=== PATIENT | female | born 1935 | race Caucasian/White ===

== ENCOUNTER → 2016-07-05 | Outpatient (CLI) | payer MEDICARE, BC ==
--- NOTE | 2016-07-05 11:59 | MM ---
Reason for exam: history of breast cancer, conservation therapy. Last mammogram was performed 6 months ago. History: Patient is postmenopausal, has history of bilateral breast cancer at age 78, and has history of high-risk lesion on a previous biopsy at age 78. Benign MG stereo VAD BX RT of the right breast, July 13, 2015. Malignant right breast needle localzation of both breasts, September 18, 2013. High risk right mammotome panel of the right breast, August 19, 2013. Lumpectomy, 2013. Radiation therapy, 2013. 2 benign excisional biopsies of the left breast. Taking antineoplastic for 1 year 2 months. Physical Findings: Nurse did not find any significant physical abnormalities on exam. MG 3D Diag Mammo W/Cad AINSLEY Bilateral CC and MLO view(s) were taken. Prior study comparison: January 04, 2016, right breast MG 3d diag mammo w/cad RT. July 04, 2015, bilateral MG 3d diag mammo w/cad AINSLEY. July 02, 2014, bilateral MG diagnostic mammo w CAD AINSLEY. July 22, 2013, bilateral digital screening mammo w/CAD. January 08, 2012, bilateral digital screening mammo w/CAD. There are scattered fibroglandular densities. Previous mammotome biopsy in the right breast. Post surgical clips in the right breast and post surgical changes. There are new course group of calcifications in the upper outer quadrant right breast near the stereo biopsy clip, suspected early dystrophic calcifications. Otherwise, no significant change. These results were verbally communicated with the patient and result sheet given to the patient on 07/05/16. ASSESSMENT: Probably benign, BI-RAD 3 RECOMMENDATION: Follow-up diagnostic mammogram of the right breast in 6 months.
== END | disposition home or self-care (01) ==
LOC: RADMAMWWP 10:46
PROVIDERS: ATTEND Radiology Diagnostic Radiology
DX: C50.911 Malignant neoplasm of unspecified site of right female breast (principal)
CPT/HCPCS: G0204; G0279

== ENCOUNTER → 2016-08-06 | Outpatient (CLI) | payer MEDICARE, BC ==
[2016-08-06 08:44] LABS: Basophils # (A) 0.1 k/uL (0-0.2); Basophils % (A) 1 %; CH 30.9; Eosinophils # (A) 0.1 k/uL (0-0.7); Eosinophils % (A) 2 %; HCT 41.8 % (34.0-46.0); HDW 2.27; HGB 13.8 gm/dL (11.4-16.0); Luc # (Auto) 0.13; Luc % (Auto) 2; Lymphocytes # (A) 1.9 k/uL (1.0-4.8); Lymphocytes % (A) 32 %; MCH 30.9 pg (25.0-35.0); MCHC 32.9 g/dL (31.0-37.0); MCV 93.9 fL (80.0-100.0); Mean Platelet Volume 7.5; Monocytes # (A) 0.4 k/uL (0-1.0); Monocytes % (A) 6 %; Neutrophils # (A) 3.3 k/uL (1.3-7.7); Neutrophils % (A) 56 %; RBC 4.46 m/uL (3.80-5.40); RDW 12.5 % (11.5-15.5); WBC 5.9 k/uL (3.8-10.6); WBC (Perox) 6.01
[2016-08-06 10:07] LABS: ALT 33 U/L (9-52); AST 22 U/L (14-36); Alkaline Phosphatase 80 U/L (38-126); Anion Gap 11 mmol/L; Blood Urea Nitrogen 9 mg/dL (7-17); Calcium 9.5 mg/dL (8.4-10.2); Carbon Dioxide 27 mmol/L (22-30); Chloride 103 mmol/L (98-107); Cholesterol 171 mg/dL (<200); Glucose 136 mg/dL (74-99); HDL Cholesterol 58 mg/dL (40-60); Non-African American GFR(MDRD) >60 (>60 ml/min/1.73 sqM); Potassium 4.4 mmol/L (3.5-5.1); Sodium 141 mmol/L (137-145); Total Bilirubin 0.6 mg/dL (0.2-1.3); Total Protein 7.4 g/dL (6.3-8.2); Triglycerides 223 mg/dL (<150)
== END | disposition home or self-care (01) ==
LOC: LABWHC1 08:13
PROVIDERS: ATTEND Internal Medicine
DX: E11.9 Type 2 diabetes mellitus without complications (principal); E78.5 Hyperlipidemia, unspecified; E03.9 Hypothyroidism, unspecified
CPT/HCPCS: 36415; 80053; 80061; 84439; 84443; 84481; 85025

== ENCOUNTER → 2017-01-02 | Outpatient (CLI) | payer MEDICARE, BC ==
--- NOTE | 2017-01-02 14:28 | MM ---
Reason for exam: follow-up at short interval from prior study. Last mammogram was performed 6 months ago. History: Patient is postmenopausal, has history of bilateral breast cancer at age 78, and has history of high-risk lesion on a previous biopsy at age 78. Benign MG stereo VAD BX RT of the right breast, July 13, 2015. Malignant right breast needle localzation of both breasts, September 18, 2013. High risk right mammotome panel of the right breast, August 19, 2013. Lumpectomy, 2013. Radiation therapy, 2013. 2 benign excisional biopsies of the left breast. Taking antineoplastic beginning at age 79. Physical Findings: Nurse did not find any significant physical abnormalities on exam. MG 3D Diag Mammo W/Cad RT CC and MLO view(s) were taken of the right breast. Prior study comparison: July 05, 2016, bilateral MG 3d diag mammo w/cad AINSLEY. July 22, 2013, bilateral digital screening mammo w/CAD. No significant new findings when compared with previous films. These results were verbally communicated with the patient and result sheet given to the patient on 01/02/17. ASSESSMENT: Benign, BI-RAD 2 RECOMMENDATION: Routine screening mammogram of both breasts in 1 year.
== END | disposition home or self-care (01) ==
LOC: RADMAMWWP 12:32
PROVIDERS: ATTEND Radiology Diagnostic Radiology
DX: C50.911 Malignant neoplasm of unspecified site of right female breast (principal); Z79.811 Long term (current) use of aromatase inhibitors
CPT/HCPCS: G0206; G0279

== ENCOUNTER → 2017-07-15 | Outpatient (CLI) | payer MEDICARE, BC ==
--- NOTE | 2017-07-15 11:54 | MM ---
Reason for exam: additional evaluation requested from prior study. Last mammogram was performed 6 months ago. History: Patient is postmenopausal, has history of bilateral breast cancer at age 78, and has history of high-risk lesion on a previous biopsy at age 78. Benign MG stereo VAD BX RT of the right breast, July 13, 2015. Malignant right breast needle localzation of both breasts, September 18, 2013. High risk right mammotome panel of the right breast, August 19, 2013. Lumpectomy, 2013. Radiation therapy, 2013. 2 benign excisional biopsies of the left breast. Taking antineoplastic beginning at age 79. Physical Findings: Nurse did not find any significant physical abnormalities on exam. MG 3D Diag Mammo W/Cad AINSLEY Bilateral CC and MLO view(s) were taken. Prior study comparison: January 02, 2017, right breast MG 3d diag mammo w/cad RT. July 05, 2016, bilateral MG 3d diag mammo w/cad AINSLEY. There are scattered fibroglandular densities. Stable benign calcifications. Previous mammotome biopsy in the right breast. Stable lumpectomy changes in the right breast. No significant new findings when compared with previous films. These results were verbally communicated with the patient and result sheet given to the patient on 07/15/17. ASSESSMENT: Benign, BI-RAD 2 RECOMMENDATION: Follow-up diagnostic mammogram of both breasts in 1 year.
== END | disposition home or self-care (01) ==
LOC: RADMAMWWP 10:40
PROVIDERS: ATTEND Internal Medicine Hematology & Oncology
DX: Z08 Encounter for follow-up examination after completed treatment for malignant neoplasm (principal); Z85.3 Personal history of malignant neoplasm of breast
CPT/HCPCS: 77066; G0279

== ENCOUNTER → 2018-02-10 | Outpatient (CLI) | payer MEDICARE, BC ==
--- NOTE | 2018-02-10 13:56 | BD ---
EXAMINATION TYPE: Axial Bone Density DATE OF EXAM: 02/10/2018 COMPARISON: Prior DEXA bone scan February 09, 2016 CLINICAL HISTORY: History of breast cancer with osteopenia. Height: 5 FT 1 1/2 IN Weight: 205 FRAX RISK QUESTIONS: RISK FACTORS HISTORY OF: Active: IN WHEEL CHAIR Postmenopausal woman: AGE 56 Poor Health: FAIR MEDICATIONS: Thyroid Medications: YES Which medication: LEVOTHYROXINE How Long: MANY YEARS Additional Medications: JANUMET, LEVOTHYROXINE,PRAVASTIN, PANTOPRAZOLE, ANASTROZOLE Additional History: EXAM MEASUREMENTS: Bone mineral densitometry was performed using the [employer] [facility]. Bone mineral density as measured about the Lumbar spine is: ----- L1-L4(G/cm2): 1.178 T Score Values are as follows: ----- L2: -0.5 ----- L3: 0.1 ----- L4: 0.1 ----- L1-L4: 0.0 Bone mineral density has: DECREASED -1.5% SINCE STUDY OF 2015 Bone mineral density about the R hip (g/cm2): 0.694 Bone mineral density about the L hip (g/cm2): 0.858 T Score values are as follows: -----R Neck: -2.5 -----L Neck: -1.3 -----R Total: -1.4 -----L Total: -0.5 Bone mineral density has: DECREASED -10% SINCE STUDY OF 2015 IMPRESSION: Osteopenia (T Score between -2.5 and -1 persists in the bilateral. Bone density decreased or diminish ed from prior. There remains slightly increased risk of fracture and the patient may be considered for treatment. Re-Screen 2-5 years. NOTE: T-SCORE=SD OF THE YOUNG ADULT MEAN.
== END | disposition home or self-care (01) ==
LOC: RADBDWWP 12:00
PROVIDERS: ATTEND Internal Medicine Hematology & Oncology
DX: M85.80 Other specified disorders of bone density and structure, unspecified site (principal); C50.919 Malignant neoplasm of unspecified site of unspecified female breast; Z79.890 Hormone replacement therapy
CPT/HCPCS: 77080

== ENCOUNTER → 2018-07-30 | Outpatient (CLI) | payer MEDICARE, BC ==
--- NOTE | 2018-07-30 15:11 | MM ---
Reason for exam: additional evaluation requested from prior study. Last mammogram was performed 1 year ago. History: Patient is postmenopausal, has history of bilateral breast cancer at age 78, and has history of high-risk lesion on a previous biopsy at age 78. Benign MG stereo VAD BX RT of the right breast, July 13, 2015. Malignant right breast needle localzation of both breasts, September 18, 2013. High risk right mammotome panel of the right breast, August 19, 2013. Lumpectomy, 2013. Radiation therapy, 2013. 2 benign excisional biopsies of the left breast. Taking antineoplastic beginning at age 79. Physical Findings: Nurse did not find any significant physical abnormalities on exam. MG 3D Diag Mammo W/Cad AINSLEY Bilateral CC and MLO view(s) were taken. Prior study comparison: July 15, 2017, bilateral MG 3d diag mammo w/cad AINSLEY. January 02, 2017, right breast MG 3d diag mammo w/cad RT. The breast tissue is heterogeneously dense. This may lower the sensitivity of mammography. Stable benign calcifications right breast. Stable post operative changes right breast. No significant new findings when compared with previous films. These results were verbally communicated with the patient and result sheet given to the patient on 07/30/18. ASSESSMENT: Benign, BI-RAD 2 RECOMMENDATION: Follow-up diagnostic mammogram of both breasts in 1 year.
== END | disposition home or self-care (01) ==
LOC: RADMAMWWP 13:38
PROVIDERS: ATTEND Radiology Diagnostic Radiology
DX: C50.911 Malignant neoplasm of unspecified site of right female breast (principal)
CPT/HCPCS: 77066; G0279; 77062

== ENCOUNTER → 2018-09-19 | Outpatient (CLI) | payer MEDICARE, BC ==
[2018-09-19 10:02] LABS: Basophils % (A) 1 %; Eosinophils # (A) 0.1 k/uL (0-0.7); Eosinophils % (A) 1 %; HCT 42.8 % (34.0-46.0); HGB 13.6 gm/dL (11.4-16.0); Lymphocytes # (A) 1.3 k/uL (1.0-4.8); Lymphocytes % (A) 30 %; MCH 29.6 pg (25.0-35.0); MCHC 31.7 g/dL (31.0-37.0); MCV 93.5 fL (80.0-100.0); Monocytes # (A) 0.3 k/uL (0-1.0); Monocytes % (A) 6 %; Neutrophils # (A) 2.5 k/uL (1.3-7.7); Neutrophils % (A) 59 %; Platelet Count 244 k/uL (150-450); RBC 4.58 m/uL (3.80-5.40); RDW 13.1 % (11.5-15.5); WBC 4.3 k/uL (3.8-10.6)
[2018-09-19 17:39] LABS: Vitamin D 25 Hydroxy 42.3 ng/mL (30.0-100.0)
[2018-09-19 17:45] LABS: Albumin 4.3 g/dL (3.80-4.90); Albumin/Globulin Ratio 1.95 (1.60-3.17); Calcium 9.3 mg/dL (8.7-10.3); Globulin 2.2 g/dL (1.6-3.3); LDL Cholesterol,Calculated 77.4 mg/dL (0.0-131.0); Total Bilirubin 0.5 mg/dL (0.3-1.2); Total Protein 6.5 g/dL (6.2-8.2); VLDL Calculation 35.6 mg/dL (5.00-40.00)
[2018-09-19 17:54] LABS: T4, Free (Free Thyroxine) 1.2 ng/dL (0.80-1.80)
[2018-09-19 19:09] LABS: Hemoglobin A1C 6.1 % (4.0-6.0)
== END | disposition home or self-care (01) ==
LOC: LABWHC1 08:53
PROVIDERS: ATTEND Internal Medicine
DX: E03.9 Hypothyroidism, unspecified (principal); E11.9 Type 2 diabetes mellitus without complications; E78.5 Hyperlipidemia, unspecified; R41.3 Other amnesia; E55.9 Vitamin D deficiency, unspecified
CPT/HCPCS: 36415; 80053; 80061; 82306; 82607; 83036; 84439; 84443; 84481; 85025

== ENCOUNTER 2024-01-15 09:55 | Emergency (ER) | payer BC, MEDICARE ==
[2024-01-15 10:13] VITALS: TEMP 97.5
--- NOTE | 2024-01-15 10:15 | ED ---
Nausea/Vomiting/Diarrhea HPI - General Chief complaint: Nausea/Vomiting/Diarrhea Stated complaint: vomiting Time Seen by Provider: 01/15/24 10:12 Source: patient, EMS, RN notes reviewed Mode of arrival: EMS - History of Present Illness Initial comments: This is an 88-year-old female with a past history of dementia who is A&O x 1 at baseline presents the emergency department via EMS from [facility] for complaint of nausea and vomiting. It is reported by nursing staff at the [facility] that patient had a episode of "unresponsiveness" and she experienced vomiting. Patient was given Zofran and route. Currently, patient is denying abdominal pain, chest pain, shortness of breath. She states that she still feels nauseated. Patient's [id number] at bedside denies previous surgical abdominal history, history of MO or CVA. [id number] states that patient had an extensive workup completed approximately 1 month ago at [facility] for an episode of syncope and there were no acute findings. - Related Data Previous Rx's Medication Instructions Recorded Cephalexin [Keflex] 500 mg PO Q6HR #40 cap 01/15/24 Allergies Allergy/AdvReac Type Severity Reaction Status Date / Time Penicillins Allergy Unknown Verified 01/15/24 10:13 Review of Systems ROS Statement: Those systems with pertinent positive or pertinent negative responses have been documented in the HPI. ROS Other: All systems not noted in ROS Statement are negative. Past Medical History Past Medical History: Dementia, Diabetes Mellitus, Thyroid Disorder Past Surgical History: Unable to Obtain General Exam Limitations: no limitations, language barrier (baseline mentation A&OX1 due to dementia) Head exam: Present: atraumatic, normocephalic, normal inspection Eye exam: Present: normal appearance, PERRL, EOMI. Absent: scleral icterus, conjunctival injection, periorbital swelling ENT exam: Present: normal exam, mucous membranes moist Neck exam: Present: normal inspection. Absent: tenderness, meningismus, lymphadenopathy Respiratory exam: Present: normal lung sounds bilaterally. Absent: respiratory distress, wheezes, rales, rhonchi, stridor Cardiovascular Exam: Present: regular rate, normal rhythm, normal heart sounds. Absent: systolic murmur, diastolic murmur, rubs, gallop, clicks GI/Abdominal exam: Present: soft, normal bowel sounds. Absent: distended, tenderness, guarding, rebound, rigid Extremities exam: Present: normal inspection, full ROM, normal capillary refill. Absent: tenderness, pedal edema, joint swelling, calf tenderness Back exam: Present: normal inspection Neurological exam: Present: alert, oriented X3, CN II-XII intact Psychiatric exam: Present: normal affect, normal mood Skin exam: Present: warm, dry, intact, normal color. Absent: rash Course Vital Signs 01/15/24 01/15/24 10:10 12:54 Temperature 97.5 F L Pulse Rate 87 80 Respiratory 16 14 Rate Blood Pressure 115/67 123/67 O2 Sat by Pulse 99 98 Oximetry Medical Decision Making - Medical Decision Making Was pt. sent in by a medical professional or institution (, PA, VIDEO ENGINEER, urgent care, hospital, or custodial...) When possible be specific @ -No Did you speak to anyone other than the patient for history (EMS, parent, family, police, friend...)? What history was obtained from this source @ -To the patient's daughter in law at bedside states the patient has not had any surgeries on her abdomen in the past. Additionally, she had a full cardiac workup completed roughly a month ago with no acute findings. Did you review nursing and triage notes (agree or disagree)? Why? @ -I reviewed and agree with nursing and triage notes Were old charts reviewed (outside hosp., previous admission, EMS record, old EKG, old radiological studies, urgent care reports/EKG's, custodial records)? Report findings @ -No old charts were reviewed Differential Diagnosis (chest pain, altered mental status, abdominal pain women, abdominal pain men, vaginal bleeding, weakness, fever, dyspnea, syncope, headache, dizziness, GI bleed, back pain, seizure, CVA, palpatations, mental health, musculoskeletal)? @ -Differential Altered Mental Status: Hypoglycemia, DKA, hypercapnia, ETOH, overdose, CO poisoning, trauma, myxedema coma, HTN encephalopathy, infection, encephalitis, psychosis, intercranial hemorrhage, hepatic encephalopathy, meningitis, CVA, this is not meant to be an all-inclusive list EKG interpreted by me (3pts min.). @ -completed at 1149: rhythm with first-degree AV block with a UT interval of 210. Ventricular rate 76, QTc 408. No acute signs of ischemia. X-rays interpreted by me (1pt min.). @ -chest X-ray no acute cardiopulmonary process or disease noted. CT interpreted by me (1pt min.). @ -None done U/S interpreted by me (1pt. min.). @ -None done What testing was considered but not performed or refused? (CT, X-rays, U/S, labs)? Why? @ -None What meds were considered but not given or refused? Why? @ -None Did you discuss the management of the patient with other professionals (professionals i.e. , PA, VIDEO ENGINEER, lab, RT, psych nurse, social service worker, travel insurance agent, teacher, assault amphibious vehicle officer, caseworker intake)? Give summary @ -No Was smoking cessation discussed for >3mins.? @ -No Was critical care preformed (if so, how long)? @ -No Were there social determinants of health that impacted care today? How? (Homelessness, low income, unemployed, alcoholism, drug addiction, transportati on, low edu. Level, literacy, decrease access to med. care, prison, rehab)? @ -No Was there de-escalation of care discussed even if they declined (Discuss DNR or withdrawal of care, Hospice)? DNR status @ -No What co-morbidities impacted this encounter? (DM, HTN, Smoking, COPD, CAD, Cancer, CVA, ARF, Chemo, Hep., AIDS, mental health diagnosis, sleep apnea, morbid obesity)? @ -None Was patient admitted / discharged? Hospital course, mention meds given and route, prescriptions, significant lab abnormalities, going to OR and other pertinent info. @ -Discharged. 8-year-old female with nausea and vomiting. On examination patient has no signs of abdominal tenderness, abdomen is soft nonrigid. Patient [id number] at bedside aided in providing history of the patient. 2 event of possibly passing out this morning she will be evaluated with a broad workup including chest x-ray to rule out potential aspiration and urinalysis for signs of confusion and nausea and vomiting. Medically treated with IV fluids with clinical signs of dehydration. UA remarkable for infection including positive nitrates, moderate leukocyte esterase, white blood cells and bacteria. She will be provided with a dose of Rocephin through the IV and sent a prescription for Keflex for the urinary tract infection and urine culture will be sent. All questions answered at bedside and strict return parameters zoran with the patient and the patient's family at bedside who verbalized understanding. Patient is stable for discharge as she has not expressed any symptoms of nausea or vomiting since being the emergency department. Additionally she has had no symptoms of abdominal pain.CBC, CMP within normal limits, troponin not elevated at less than 0.012. Glucose mildly elevated at 157. Negative for COVID, flu, RSV. Undiagnosed new problem with uncertain prognosis? @ -No Drug Therapy requiring intensive monitoring for toxicity (Heparin, Nitro, Insulin, Cardizem)? @ -No Were any procedures done? @ -No Diagnosis/symptom? @ -UTI, nausea and vomiting Acute, or Chronic, or Acute on Chronic? @ -acute Uncomplicated (without systemic symptoms) or Complicated (systemic symptoms)? @ -uncomplicated Side effects of treatment? @ -No Exacerbation, Progression, or Severe Exacerbation? @ -No Poses a threat to life or bodily function? How? (Chest pain, USA, MO, pneumonia, PE, COPD, DKA, ARF, appy, cholecystitis, CVA, Diverticulitis, Homicidal, Suicidal, threat to staff... and all critical care pts) @ -No - Lab Data Result diagrams: 01/15/24 10:31 01/15/24 10:31 Lab Results 01/15/24 01/15/24 01/15/24 Range/Units 10:31 10:31 10:31 WBC 4.9 (3.8-10.6) k/uL RBC 3.75 L (3.80-5.40) m/uL Hgb 11.6 (11.4-16.0) gm/dL Hct 36.0 (34.0-46.0) % MCV 96.2 (80.0-100.0) fL MCH 30.9 (25.0-35.0) pg MCHC 32.1 (31.0-37.0) g/dL RDW 12.0 (11.5-15.5) % Plt Count 247 (150-450) k/uL MPV 8.2 Neutrophils % 65 % Lymphocytes % 27 % Monocytes % 6 % Eosinophils % 1 % Basophils % 0 % Neutrophils # 3.1 (1.3-7.7) k/uL Lymphocytes # 1.3 (1.0-4.8) k/uL Monocytes # 0.3 (0-1.0) k/uL Eosinophils # 0.1 (0-0.7) k/uL Basophils # 0.0 (0-0.2) k/uL Hypochromasia Slight Sodium 137 (137-145) mmol/L Potassium 4.6 (3.5-5.1) mmol/L Chloride 108 H (98-107) mmol/L Carbon Dioxide 24 (22-30) mmol/L Anion Gap 5 mmol/L BUN 14 (7-17) mg/dL Creatinine 0.52 (0.52-1.04) mg/dL Est GFR (CKD-EPI)AfAm >90 (>60 ml/min/1.73 sqM) Est GFR (CKD-EPI)NonAf 86 (>60 ml/min/1.73 sqM) Glucose 157 H (74-99) mg/dL Plasma Lactic Acid Lai (0.7-2.0) mmol/L Calcium 8.5 (8.4-10.2) mg/dL Total Bilirubin 0.7 (0.2-1.3) mg/dL AST 21 (14-36) U/L ALT 9 (4-34) U/L Alkaline Phosphatase 45 (38-126) U/L Troponin I (0.000-0.034) ng/mL Total Protein 5.9 L (6.3-8.2) g/dL Albumin 3.3 L (3.5-5.0) g/dL Amylase 43 (30-110) U/L Lipase 83 (23-300) U/L Urine Color Yellow Urine Appearance Cloudy H (Clear) Urine pH 6.5 (5.0-8.0) Ur Specific [place] 1.021 (1.001-1.035) Urine Protein Trace H (Negative) Urine Glucose (UA) Negative (Negative) Urine Ketones Negative (Negative) Urine Blood Negative (Negative) Urine Nitrite Positive H (Negative) Urine Bilirubin Negative (Negative) Urine Urobilinogen 2.0 (<2.0) mg/dL Ur Leukocyte Esterase Moderate H (Negative) Urine RBC 5 (0-5) /hpf Urine WBC 55 H (0-5) /hpf Ur Squamous Epith Cells 5 H (0-4) /hpf Urine Bacteria Occasional H (None) /hpf Hyaline Casts 1 (0-2) /lpf Urine Mucus Occasional H (None) /hpf Influenza Type A (PCR) (Not Detectd) Influenza Type B (PCR) (Not Detectd) RSV (PCR) (Not Detectd) SARS-CoV-2 (PCR) (Not Detectd) 01/15/24 01/15/24 01/15/24 Range/Units 10:31 10:31 10:31 WBC (3.8-10.6) k/uL RBC (3.80-5.40) m/uL Hgb (11.4-16.0) gm/dL Hct (34.0-46.0) % MCV (80.0-100.0) fL MCH (25.0-35.0) pg MCHC (31.0-37.0) g/dL RDW (11.5-15.5) % Plt Count (150-450) k/uL MPV Neutrophils % % Lymphocytes % % Monocytes % % Eosinophils % % Basophils % % Neutrophils # (1.3-7.7) k/uL Lymphocytes # (1.0-4.8) k/uL Monocytes # (0-1.0) k/uL Eosinophils # (0-0.7) k/uL Basophils # (0-0.2) k/uL Hypochromasia Sodium (137-145) mmol/L Potassium (3.5-5.1) mmol/L Chloride (98-107) mmol/L Carbon Dioxide (22-30) mmol/L Anion Gap mmol/L BUN (7-17) mg/dL Creatinine (0.52-1.04) mg/dL Est GFR (CKD-EPI)AfAm (>60 ml/min/1.73 sqM) Est GFR (CKD-EPI)NonAf (>60 ml/min/1.73 sqM) Glucose (74-99) mg/dL Plasma Lactic Acid Lai 1.5 (0.7-2.0) mmol/L Calcium (8.4-10.2) mg/dL Total Bilirubin (0.2-1.3) mg/dL AST (14-36) U/L ALT (4-34) U/L Alkaline Phosphatase (38-126) U/L Troponin I <0.012 (0.000-0.034) ng/mL Total Protein (6.3-8.2) g/dL Albumin (3.5-5.0) g/dL Amylase (30-110) U/L Lipase (23-300) U/L Urine Color Urine Appearance (Clear) Urine pH (5.0-8.0) Ur Specific [place] (1.001-1.035) Urine Protein (Negative) Urine Glucose (UA) (Negative) Urine Ketones (Negative) Urine Blood (Negative) Urine Nitrite (Negative) Urine Bilirubin (Negative) Urine Urobilinogen (<2.0) mg/dL Ur Leukocyte Esterase (Negative) Urine RBC (0-5) /hpf Urine WBC (0-5) /hpf Ur Squamous Epith Cells (0-4) /hpf Urine Bacteria (None) /hpf Hyaline Casts (0-2) /lpf Urine Mucus (None) /hpf Influenza Type A (PCR) Not Detected (Not Detectd) Influenza Type B (PCR) Not Detected (Not Detectd) RSV (PCR) Not Detected (Not Detectd) SARS-CoV-2 (PCR) Not Detected (Not Detectd) Disposition Clinical Impression: Nausea & vomiting, UTI (urinary tract infection) Disposition: HOME SELF-CARE Condition: Good Instructions (If sedation given, give patient instructions): Urinary Tract Infection in Older Adults (ED) Additional Instructions: Return to the emergency department for any new or worsening symptoms. Complete full course of antibiotics as prescribed. Prescriptions: Cephalexin [Keflex] 500 mg PO Q6HR #40 cap Is patient prescribed a controlled substance at d/c from ED?: No Referrals: None,Stated [REFERRING] - 1-2 days Time of Disposition: 13:45
--- NOTE | 2024-01-15 11:01 | XR ---
EXAMINATION TYPE: XR chest 2V DATE OF EXAM: 01/15/2024 COMPARISON: 01/11/2013 TECHNIQUE: PA and lateral views submitted. HISTORY: Nausea and vomiting FINDINGS: The lungs are clear and there is no pneumothorax, pleural effusion, or focal pneumonia. Heart size normal and no overt failure. Osseous structures demonstrate hypertrophic and degenerative changes of the spine. Diffuse osteopenia and arthropathy of the shoulders. Postsurgical clips overlying the righ t chest. There is a hiatal hernia. IMPRESSION: 1. No acute process. 2. Hiatal hernia.
[2024-01-15 11:12] LABS: ALT 9 U/L (4-34); African American GFR (CKD) >90 (>60 ml/min/1.73 sqM); Albumin 3.3 g/dL (3.5-5.0); Amylase 43 U/L (30-110); Anion Gap 5 mmol/L; Blood Urea Nitrogen 14 mg/dL (7-17); Calcium 8.5 mg/dL (8.4-10.2); Carbon Dioxide 24 mmol/L (22-30); Chloride 108 mmol/L (98-107); Glucose 157 mg/dL (74-99); Lipase 83 U/L (23-300); Non-African American GFR(CKD) 86 (>60 ml/min/1.73 sqM); Sodium 137 mmol/L (137-145); Total Bilirubin 0.7 mg/dL (0.2-1.3); Total Protein 5.9 g/dL (6.3-8.2)
[2024-01-15 11:17] LABS: AST 21 U/L (14-36); Alkaline Phosphatase 45 U/L (38-126); Potassium 4.6 mmol/L (3.5-5.1)
[2024-01-15 11:24] LABS: Basophils % (A) 0 %; Eosinophils # (A) 0.1 k/uL (0-0.7); Eosinophils % (A) 1 %; HGB 11.6 gm/dL (11.4-16.0); Hypochromasia Slight; Lymphocytes # (A) 1.3 k/uL (1.0-4.8); Lymphocytes % (A) 27 %; MCH 30.9 pg (25.0-35.0); MCHC 32.1 g/dL (31.0-37.0); MCV 96.2 fL (80.0-100.0); Mean Platelet Volume 8.2; Monocytes # (A) 0.3 k/uL (0-1.0); Monocytes % (A) 6 %; Neutrophils # (A) 3.1 k/uL (1.3-7.7); Neutrophils % (A) 65 %; Platelet Count 247 k/uL (150-450); RBC 3.75 m/uL (3.80-5.40); WBC 4.9 k/uL (3.8-10.6)
[2024-01-15] MEDS: SODIUM CHLORIDE 0.9% 1,000 ML IV STA (11:30)
[2024-01-15 13:25] LABS: Appearance,Urine Cloudy (Clear); Bacteria,Urine Occasional /hpf; Bilirubin,Urine Negative (Negative); Blood,Urine Negative (Negative); Color,Urine Yellow; Glucose,Urine (UA) Negative (Negative); Hyaline Casts,Urine 1 /lpf (0-2); Ketones,Urine Negative (Negative); Leukocyte Esterase,Urine Moderate (Negative); Mucus,Urine Occasional /hpf; Nitrite,Urine Positive (Negative); PH, Urine 6.5 (5.0-8.0); Protein,Urine Trace (Negative); RBC,Urine 5 /hpf (0-5); Specific Gravity,Urine 1.021 (1.001-1.035); Squamous Epithelial Cell,Urine 5 /hpf (0-4); WBC,Urine 55 /hpf (0-5)
[2024-01-15] MEDS: cefTRIAXone IN SWFI 1,000 MG/10 ML SYRINGE IVP STA (14:04)
[2024-01-15 14:22] VITALS: BP 132/78; PULSE 84; RESP 16
== END 2024-01-15 14:21 | disposition home or self-care (01) ==
LOC: EC 09:55
DX: N39.0 Urinary tract infection, site not specified (principal); B96.20 Unspecified Escherichia coli [E. coli] as the cause of diseases classified elsewhere; R11.2 Nausea with vomiting, unspecified; R19.7 Diarrhea, unspecified; I44.0 Atrioventricular block, first degree; Z88.0 Allergy status to penicillin
CPT/HCPCS: 36415; 93005; 80053; 82150; 83605; 83690; 84484; 85025; 81001; 87086; 87077; 87186; 87636; 71046; 99285; 96374; 96361; J0696